=== PATIENT | male | born 1935 | race Caucasian/White ===

== ENCOUNTER 2017-05-24 09:15 | Inpatient (IN) ==
[2017-05-24 10:03] LABS: Basophils % 0.4 % (0.0-0.8); Eosinophils # 0.1 10*3/uL (0.0-0.87); Eosinophils % 0.6 % (0.00-10.9); Hematocrit 44.7 VOL% (42.0-52.0); Hemoglobin 15.1 GM/DL (14.0-18.0); Immature Granulocytes % 0.3 %; Immature Granulocytes Absolute 0.03 #; Lymphocytes # 0.6 10*3/uL (1.4-4.0); Mean Corpuscular HGB Conc 33.8 GM/DL (32-36); Mean Corpuscular Hemoglobin 31 PG (27-34); Mean Corpuscular Volume 91.8 FL (87-102); Mean Platelet Volume 10.6 FL (9.6-12.0); Monocytes # 0.7 10*3/uL (0.11-0.8); Monocytes % 7.5 % (1.7-12.7); Neutrophils # 7.6 10*3/uL (1.4-7.4); Neutrophils % 84.2 % (38.7-73.9); Platelet Count 205 T/CUMM (130-400); Red Blood Count 4.87 MC/CUMM (3.8-5.5); Red Cell Distribution Width 13.6 % (9.3-17.3)
[2017-05-24 10:13] LABS: Alanine Aminotransferase 24 U/L (16-61); Albumin 3.5 G/DL (3.4-5.0); Alkaline Phosphatase 142 U/L (45-117); Aspartate Amino Transferase 24 U/L (0-37); Blood Urea Nitrogen 19 MG/DL (7-18); Calcium 8.8 MG/DL (8.5-10.1); Glucose 145 MG/DL (74-106); Osmolality,Calculated 277.8 MOS/KG (273-304); Potassium 5.1 MMOL/L (3.5-5.1); Sodium 137 MMOL/L (136-145); Troponin I Only < 0.015 NG/ML (0.00-0.045)
[2017-05-24] MEDS ORDERED: ONDANSETRON 4 MG/2 ML VIAL IV PRN (12:31)
[2017-05-24] MEDS ORDERED: LACTULOSE 20 GM/30 ML UDCUP PO PRN (12:31)
[2017-05-24] MEDS ORDERED: ACETAMINOPHEN 325 MG TABLET PO PRN (12:31)
[2017-05-24] MEDS ORDERED: DOCUSATE SODIUM 100 MG CAPSULE PO PRN (12:31)
[2017-05-24] MEDS: SODIUM CHLORIDE 0.9% 1,000 ML IV SCH (14:02)
[2017-05-25] MEDS: SODIUM CHLORIDE 0.9% 1,000 ML IV SCH (00:54)
[2017-05-25 05:27] LABS: Basophils % 0.8 % (0.0-0.8); Eosinophils # 0.1 10*3/uL (0.0-0.87); Eosinophils % 1.4 % (0.00-10.9); Hematocrit 40.8 VOL% (42.0-52.0); Immature Granulocytes % 0.4 %; Immature Granulocytes Absolute 0.02 #; Lymphocytes # 1.3 10*3/uL (1.4-4.0); Lymphocytes % 25.1 % (21.2-54.2); Mean Corpuscular HGB Conc 34.3 GM/DL (32-36); Mean Corpuscular Hemoglobin 32 PG (27-34); Mean Corpuscular Volume 92.9 FL (87-102); Mean Platelet Volume 11.1 FL (9.6-12.0); Monocytes # 0.6 10*3/uL (0.11-0.8); Neutrophils # 3.1 10*3/uL (1.4-7.4); Neutrophils % 60.3 % (38.7-73.9); Platelet Count 177 T/CUMM (130-400); Red Blood Count 4.39 MC/CUMM (3.8-5.5); Red Cell Distribution Width 13.8 % (9.3-17.3); White Blood Count 5.2 T/CUMM (4-12)
[2017-05-25 05:43] LABS: Osmolality,Calculated 278.5 MOS/KG (273-304); Potassium 4.5 MMOL/L (3.5-5.1)
[2017-05-25] MEDS ORDERED: PANTOPRAZOLE 40 MG TABLET PO SCH (09:00)
[2017-05-25] MEDS ORDERED: ASPIRIN EC 81 MG TABLET PO SCH (10:00)
[2017-05-25 12:10] VITALS: BP 157/77
[2017-05-25] MEDS ORDERED: SIMVASTATIN 10 MG TABLET PO SCH (21:00)
== END 2017-05-25 13:53 | disposition home or self-care (01) | DRG 312 ==
LOC: N.ED 09:15 → N.EDINP 10:58 → N.TELES 12:08
PROVIDERS: ADMIT Internal Medicine; ATTEND Internal Medicine